=== PATIENT | male | born 1980 | race Caucasian/White ===

== ENCOUNTER 2024-05-13 13:28 | Outpatient (AMB) | payer MEDICARE, MEDICAID, SELFPAY ==
--- NOTE | 2024-05-13 13:31 | MHC.OFFVIS ---
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 Chronic pain originating from a left knee injury a decade ago has led to complex pain issues. His widespread musculoskeletal pain is associated with fibromyalgia, with the current primary concerns being chronic back and bilateral hip pain, worse on the left. He has a comprehensive history of prescribed pharmacologic interventions including tramadol and tizanidine, in addition to previously taking meloxicam. Denies any fever or chills, abdominal pain, weakness, foot drop, bladder or bowel dysfunction or saddle anesthesia. He has undergone ineffective rounds of physical therapy, chiropractic therapy and has performed home traction as part of his management strategy. He is currently in PT through [facility]. Diagnostics have included hip MRI and x-rays, with additional hip imaging scheduled on 05/17/24 at [facility] ordered by [employer]. Previous imaging reports are not available for review today. Although the patient did not have surgery on the knee or hip, he reports chronic misalignment due to initial improper cane use. Patient currently sees a Psychiatrist for bipolar disorder, PTSD and anxiety. Additionally, there is a notable past of IV substance use addressed through rehabilitation in 2008, with ongoing cannabis use admitted through local dispensary. His lifestyle is impacted by the pain, particularly in mobility and sleep, yet recent administration of tizanidine improved his nighttime comfort. - Chronic pain, persistent for over a decade - Originated from a left knee injury 10 years ago - Widespread, overwhelming, electrical sensation of pain, pulsing, throbbing, pinching, tugging, pulling, tingling, sore, hurting, aching, tiring, sickening, spreading, radiating, and tight - Primary locations: back and hips, widespread body pain - Exacerbated by bending backwards, movements, alleviated with tizanidine for sleep; heat therapy - Interferes with daily activities and rest - Affect: The patient's pain impacts psychological well-being, intertwined with anxiety and bipolar disorder. - Analgesia: Currently taking tramadol and tizanidine; previously took meloxicam. Goal is to manage with current medications as effective. Starting Lyrica. Reports taking klonopin once in a while but not often. Recently received script for Seroquel but has not started it. - Adverse Effects: No adverse effects from current medications are reported. - Activities of Daily Living: Pain disrupts sleep and impairs day-to-day activities. - Aberrant Drug Related Behaviors: History of substance use addressed with rehabilitation and methadone therapy; current opioid contract management through PCP provider. PFSH Medical History Bilateral hip pain Fibromyalgia Hepatitis C PTSD (post-traumatic stress disorder) Primary fibromyalgia syndrome Anxiety GERD (gastroesophageal reflux disease) Cannabis dependence Mixed bipolar disorder History of intravenous drug abuse Social History (Updated 05/13/24 @ 13:38 by Ana Salomon) Alcohol intake: never Patient Tobacco Use Status: Never used Tobacco Substance Use Type: Marijuana Review of Systems Const Details: - Musculoskeletal: Reports pain in back, hips, and previously injured left knee. - Gastrointestinal: Reports acid reflux. - Neurological: Denies recent use of IV drugs. - Psychiatric: Reports anxiety, PTSD and bipolar disorder. - Sleep: Reports disrupted sleep patterns recently helped by taking tizanidine. All systems reviewed & are unremarkable except as noted in HPI and below Physical Exam Vital Signs: Last Vital Signs Pulse 70 05/13/24 13:39 BP 153/83 H 05/13/24 13:39 Pulse Ox 97 05/13/24 13:39 Oxygen Delivery Method Room Air 05/13/24 13:39 BMI result Body Mass Index 21.7 General: Appears afebrile. Alert and oriented. Mood and affect appropriate. Follows and participates in conversation appropriately. Respiratory effort is unlabored. No cough. Able to transition from sit to stand unassisted. Ambulates with bilaterally normal heel strike and toe off. General: Yes no CVA tenderness Back/Spine/Pelvis Other: Patient is able to walk and stand on heels and tip toes with no difficulties demonstrating good motor tone. No limping. Can flex forward to 70-75 degrees and extend to 5-10 degrees before experiencing lumbar pain. Mild midline tenderness to palpation in the mid thoracic spine. Demonstrates 5/5 right and 4/5 left due to pain strength of quadriceps bilaterally as well as flexion/dorsiflexion of bilateral feet against resistance. 2+ pedal pulses bilaterally. Straight leg rise with dorsiflexion negative bilaterally. +3 patellar and +2 achilles reflexes bilaterally. Facet loading test positive bilaterally. Gonzalo sign, Amandeep?s, Gaenslen, Pelvic compression and Stinchfield tests are positive bilaterally, left>right. Moderate left groin pain with I/E hip rotations. Valsalva maneuver is negative. Multiple widespread TTPs 16/16 bilaterally, including upper and lower extremities. Back: no CVA tenderness Cervical Spine: cervical ROM normal, cervical muscular tenderness, pain with cervical ROM, No Cervical spine scars present and No Cervical spine tenderness Thoracic/Lumbar Spine: thoracic and lumbar spine normal to inspection, No Thoracic/lumbar spine scar(s), Lasegue's sign negative, straight leg raise negative bilaterally, pain with thoraco-lumbar ROM, paraspinal muscle tenderness, thoraco-lumbar ROM limited, thoracic spinal tenderness (mid thoracic) and lumbar spinal tenderness (L5-S1) Pelvis: buttock tenderness on the left Sacroiliac joints: bilaterally tender to palpation Extrem General: Yes capillary refill normal, Yes no clubbing, cyanosis or edema and Yes no calf tenderness Results Reviewed Results Reviewed: No imaging results are available for review today. Will request previous imaging reports from [facility] and [facility]. Assessment & Plan Assessment & Plan (1) Chronic low back pain: Code(s): M54.50 - Low back pain, unspecified; G89.29 - Other chronic pain Category: Medical (2) Lumbosacral spondylosis: Code(s): M47.817 - Spondylosis without myelopathy or radiculopathy, lumbosacral region Category: Medical (3) Mid back pain: Code(s): M54.9 - Dorsalgia, unspecified Category: Medical (4) Cannabis dependence: Code(s): F12.20 - Cannabis dependence, uncomplicated Category: Medical (5) Fibromyalgia: Code(s): M79.7 - Fibromyalgia Category: Medical (6) Bilateral hip pain: Code(s): M25.551 - Pain in right hip; M25.552 - Pain in left hip Category: Medical Plan The primary management strategy includes continuation of tramadol (PCP prescribed) and tizanidine for chronic pain management linked to fibromyalgia and chronic left knee and bilateral hip pain. He is planning to start Lyrica. Scheduled x-rays of the thoracic and lumbar spine aim to degree of degenerative changes, any subluxation, listhesis, compression fractures or pars defects. Medial branch blocks may be considered based on imaging results. Ongoing physical therapy concentrating on back and hip care is advised. Cognitive behavioral therapy through Psychiatrist or [facility] is recommended for mental and fibromyalgia support. All questions and concerns have been answered and patient agreed with the treatment plan. Follow up for xray results and sooner as needed. Patient was informed and verbally consented to the use of an ambient scribe for clinic note documentation during this visit. Orders: Orders XR thoracic spine 2V Today M54.9 - Dorsalgia, unspecified XR lumbar spine 4V min Today G89.29 - Other chronic pain, M47.817 - Spondylosis without myelopathy or radiculopathy, lumbosacral region, M54.50 - Low back pain, unspecified Patient Instructions: I discussed with the patient the chronic nature of his pain related to fibromyalgia, arthritis and the impact of his previous left knee injury. We deliberated on the continuation of tramadol and tizanidine as part of his current analgesia regimen through PCP. I outlined the need for further diagnostic evaluations with x-rays of the spine to examine potential arthritic changes or instability. We reviewed the merits of pain intervention strategies like nerve blocks for potential neuromodulation or RFA procedures and the importance of physical therapy. Lifestyle adaptations through cognitive behavioral therapy via an ho or Psychiatrist were recommended to support mental wellbeing. I communicated our office opioid policy and considerations around opioid prescribing due to his past substance use history. We will address patient's pain through non-opioid and interventional treatments to address chronic back and hip pain. - Continue current medications as prescribed by PCP for pain management. - Schedule and attend upcoming spine imaging appointments. - Maintain physical therapy focusing on back and hip areas. - Download and engage with [facility] for cognitive and fibromyalgia or consider CBT through Psychiatrist. - Adhere to previously established opioid contract terms and continue avoidance of substance misuse. - Adhere to physical therapy and home exercise program and return for follow-up if pain worsens or new symptoms arise. Coding Level of Care Code New Pt Level 4 (66697) Complex EM visit Add On G2211 Diagnoses Chronic low back pain M54.50; G89.29 Lumbosacral spondylosis M47.817 Mid back pain M54.9 Cannabis dependence F12.20 Fibromyalgia M79.7 Bilateral hip pain M25.551; M25.552
[2024-05-13 13:39] VITALS: BP 153/83; PULSE 70; O2SAT 97; BMI 21.7
== END 2024-05-13 14:04 | disposition home or self-care (01) ==
LOC: HO.PMC 13:29
PROVIDERS: PCP Internal Medicine; Referring Provider Nurse Practitioner; Visit Provider Nurse Practitioner Family
DX: M54.50 Low back pain, unspecified (principal); G89.29 Other chronic pain; M47.817 Spondylosis without myelopathy or radiculopathy, lumbosacral region; M54.9 Dorsalgia, unspecified; F12.20 Cannabis dependence, uncomplicated; M79.7 Fibromyalgia; M25.551 Pain in right hip; M25.552 Pain in left hip
CPT/HCPCS: 99204; G2211

== ENCOUNTER 2024-05-13 13:28 | Outpatient (REF) | payer MEDICARE, MEDICAID, SELFPAY ==
--- NOTE | ~2024-05-13 | XR_ITS ---
CLINICAL HISTORY: M54.50 - Low back pain, unspecified 5 views lumbar spine Comparison: None Findings: Normal vertebral body alignment. No acute fractures or dislocation. No significant degenerative change. IMPRESSION: No acute findings. This document has been electronically signed by: Meeta Elizalde MD on 05/16/2024 15:59:25
--- NOTE | ~2024-05-13 | XR_ITS ---
CLINICAL HISTORY: M54.9 - Dorsalgia, unspecified 3 views thoracic spine Comparison: None Findings: Normal alignment. No acute fractures or dislocation. Mild degenerative changes. IMPRESSION: No acute findings. This document has been electronically signed by: Meeta Elizalde MD on 05/16/2024 16:00:10
== END 2024-05-13 13:29 | disposition home or self-care (01) ==
LOC: HO.XRAY 13:28
PROVIDERS: PCP Internal Medicine; Referring Provider Nurse Practitioner; Visit Provider Nurse Practitioner Family
DX: M54.50 Low back pain, unspecified (principal); M54.9 Dorsalgia, unspecified; G89.29 Other chronic pain; M47.817 Spondylosis without myelopathy or radiculopathy, lumbosacral region; F12.20 Cannabis dependence, uncomplicated; M79.7 Fibromyalgia; M25.551 Pain in right hip; M25.552 Pain in left hip
CPT/HCPCS: 72070; 72110; 99202

== ENCOUNTER → 2024-05-13 14:14 | Outpatient (BNV) | payer MEDICARE, MEDICAID, SELFPAY | PROVIDERS: PCP Internal Medicine; Referring Provider Nurse Practitioner; Visit Provider Radiology Diagnostic Radiology | DX: M54.50 Low back pain, unspecified (principal); M54.6 Pain in thoracic spine | CPT/HCPCS: 72070; 72110 ==